=== PATIENT | male | born 1970 | race African-American/Black ===

== ENCOUNTER 2019-06-06 14:42 | Inpatient (IN) | payer OTHER ==
[2019-06-06 17:52] VITALS: BMI 22.8
--- NOTE | 2019-06-06 20:03 | PN ---
Teaching Attending Note Name of Resident: Charlene Hoskins ATTENDING PHYSICIAN STATEMENT I saw and evaluated the patient. I reviewed the resident's note and discussed the case with the resident. I agree with the resident's findings and plan as documented. SUBJECTIVE: 49 yo here for opioid detox and alcohol use. h/o HTN uses 1 bundle/day of heroin, sniffs drinks 2 oz/day. OBJECTIVE: Vital Signs - 24 hr 06/06/19 17:48 Temperature 100.3 F H Pulse Rate 79 Respiratory 16 Rate Blood Pressure 162/110 H repeat BP 99.6 PE- lungs clear macular red rash on R neck, extending to chest and back of neck-non pruritic, non tender ASSESSMENT AND PLAN: probable URI heroin detox follow rash
[2019-06-06] MEDS ORDERED: MAGNESIUM HYDROX 2400MG/30ML ORAL SUSPENSION 30 ML CUP PO PRN (20:07)
[2019-06-06] MEDS ORDERED: MAGNESIUM CITRATE 300 ML BOTTLE PO PRN (20:07)
[2019-06-06] MEDS ORDERED: MAG HYDROX/AL HYDROX/SIMETH 30 ML UNIT-DOSE CUP PO PRN (20:07)
[2019-06-06] MEDS ORDERED: guaiFENesin 200 MG/10 ML 10 ML UNIT-DOSE CUPS PO PRN (20:07)
[2019-06-06] MEDS ORDERED: LOPERAMIDE HCL 2 MG CAPSULE PO PRN (20:07)
[2019-06-06] MEDS ORDERED: MENTHOL/PHENOL 1 EACH UD MM PRN (20:07)
[2019-06-06] MEDS ORDERED: ACETAMINOPHEN 325 MG TABLET (FP) PO PRN (20:07)
[2019-06-06] MEDS ORDERED: cloNIDine HCL 0.1 MG TABLET PO PRN ×2 (20:12→20:17)
[2019-06-06] MEDS ORDERED: METHADONE HCL 10 MG TABLET (FOR DETOX USE ONLY) PO ONE (20:15)
--- NOTE | 2019-06-06 20:24 | HP ---
COWS - Scale Resting Pulse: 0= HI 80 or Below Sweatin= Chills/Flushing Restless Observation: 0= Sits Still Pupil Size: 0= Normal to Room Light Bone or Joint Aches: 1= Mild Discomfort Runny Nose/ Eye Tearin= Runny Nose/Eyes GI Upset > 30mins: 1= Stomach Cramp Tremor Observation: 0= None Yawning Observation: 1= 1-2x During Session Anxiety or Irritability: 1=Feels Anxious/Irritable Goose Flesh Skin: 3=Piloerection COWS Score: 10 CIWA Score - Admission Criteria [facility] Guidelines: Admission for Medically Managed Detox: Requires at least one of the followin. CIWA greater than 12 2. Seizures within the past 24 hours 3. Delirium tremens within the past 24 hours 4. Hallucinations within the past 24 hours 5. Acute intervention needed for co occurring medical disorder 6. Acute intervention needed for co occurring psychiatric disorder 7. Severe withdrawal that cannot be handled at a lower level of care (continued vomiting, continued diarrhea, abnormal vital signs) requiring intravenous medication and/or fluids 8. Admission [facility] Chief Complaint: detox from heroin Allergies/Adverse Reactions: Allergies Allergy/AdvReac Type Severity Reaction Status Date / Time No Known Allergies Allergy Verified 06/06/19 17:44 History of Present Illness: Mr. Hernandez is a 49yo male with heroin use disorder, cocaine use disorder, and HTN who presents for detox from heroin. He has been snorting usng 1 bundle/ daily x 6 months, following the of his mother. He has been using heroin since his 20s. He also snorts $100 of cocaine daily. He reports drinking 2 oz of vodka daily. He has been to detox multiple times and is requesting methadone for detox. He currently endorses fatigue, fever, chills, productive cough. He denies n/v/d. He is currently homeless and sometimes stays in shelters in [place]. He reports taking his amlodipine daily. PMH: heroin use disorder, cocaine use disorder, and HTN surgical hx: jaw fx family hx: father HTN meds: amlodipine NKDA - Ebola screening Have you traveled outside of the country in the last 21 days: No Have you had contact with anyone from an Ebola affected area: No - Review of Systems Constitutional: Chills, Diaphoresis, Fever, Weakness EENT: reports: Nose Congestion Respiratory: reports: Productive cough (whitish sputum). denies: Shortness of Breath, Wheezing Cardiac: denies: Chest Pain GI: denies: Diarrhea, Nausea, Vomiting Musculoskeletal: reports: Joint Pain Integumentary: reports: Rash Neuro: denies: Headache, Dizziness Endocrine: reports: No Symptoms Reported Hematology: reports: No Symptoms Reported Psychiatric: reports: Judgement Intact, Orientated x3, Agitated (mild) Patient History - Patient Medical History Hx Asthma: No Hx Hypertension: Yes Hx Diabetes: No - Patient Surgical History Past Surgical History: Yes Other Surgical History: jaw - Smoking Cessation Smoking history: Current every day smoker Have you smoked in the past 12 months: Yes Aproximately how many cigarettes per day: 20 Initiated information on smoking cessation: Yes 'Breaking Loose' booklet given: 06/06/19 - Substances abused Alcohol Substance route: Oral Frequency: Daily Amount used: 1 pint of vodka Age of first use: 15 Date of last use: 06/05/19 Heroin Substance route: Inhalation Frequency: Daily Amount used: 10 bags/day Age of first use: 20 Date of last use: 06/05/19 Cocaine Substance route: Inhalation Frequency: Daily Amount used: $100 Age of first use: 25 Date of last use: 06/05/19 Family Disease History - Family Disease History Family Disease History: Heart Disease: Father (HTN) Admission Physical Exam S - Vital Signs Vital Signs: Vital Signs - 24 hr 06/06/19 17:48 Temperature 100.3 F H Pulse Rate 79 Respiratory 16 Rate Blood Pressure 162/110 H - Physical General Appearance: Yes: Other (somnolent) HEENTM: Yes: Hearing grossly Normal, Normocephalic, ZEN, Other (dry mucous membranes) Respiratory: Yes: Lungs Clear, No Respiratory Distress Neck: Yes: Other (rash) Cardiology: Yes: Regular Rhythm, Regular Rate Abdominal: Yes: Normal Bowel Sounds, Non Tender Back: Yes: Normal Inspection Musculoskeletal: Yes: full range of Motion Extremities: Yes: Normal Capillary Refill Neurological: Yes: 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 NML intact, Fully Oriented, Alert, Motor Strength 5/5 Integumentary: Yes: Erythema (non-prurutic, non-tender macular rash along left chest, above clavicle, onto upper back and lateral neck) - Diagnostic (1) Severe heroin use disorder Current Visit: Yes Status: Chronic (2) Cocaine use disorder Current Visit: Yes Status: Chronic (3) Hypertension Current Visit: Yes Status: Chronic Qualifiers: Hypertension type: essential hypertension Qualified Code(s): I10 - Essential (primary) hypertension Cleared for Admission B[facility] - Detox or Rehab [facility] Level of Care: Medically Managed Breathalyzer - Breathalyzer Breathalyzer: 0 Inpatient Rehab Admission - Rehab Decision to Admit Inpatient rehab admission?: No
--- NOTE | 2019-06-06 22:26 | PN ---
S Progress Note Note: Hx HTN. Heroin and Cocaine use disorder. Denies CP/SOB. Abnormal EKG noted on routine exam. Vital Signs 06/06/19 06/06/19 06/06/19 17:48 21:29 21:53 Temperature 100.3 F H 98.9 F 98.9 F Pulse Rate 79 72 72 Respiratory 16 16 16 Rate Blood Pressure 162/110 H 179/110 H 179/110 H Plan: Repeat EKG in a.m. Clonidine 0.1 mg for DBP > 100
[2019-06-06] MEDS: THIAMINE HCL 100 MG TABLET (FP) PO SCH (22:51)
[2019-06-06] MEDS: NICOTINE 21 MG/24 HOURS TOPICAL PATCH TD SCH (22:52)
[2019-06-07] MEDS ORDERED: METHADONE HCL 10 MG TABLET (FOR DETOX USE ONLY) ONE (08:44)
[2019-06-07] MEDS ORDERED: METHADONE HCL 5 MG TABLET (FOR DETOX USE ONLY) ONE (08:45)
[2019-06-07] MEDS ORDERED: METHADONE (DETOX) 20 MG, METHADONE (DETOX) 5 MG PO ONE (10:00)
[2019-06-07 10:07] LABS: ALBUMIN 3.5 g/dl (3.4-5.0); BILIRUBIN,TOTAL 0.5 mg/dL (0.2-1); BLOOD UREA NITROGEN 15.1 mg/dL (7-18); CALCIUM 9.1 mg/dL (8.5-10.1); CREATININE 1.1 mg/dL (0.55-1.3)
[2019-06-07] MEDS: ASPIRIN 81 MG CHEWABLE TABLETS PO SCH (10:09)
[2019-06-07] MEDS: PRENATAL VITAMINS W/ FOLIC ACID TABLET (FP) PO SCH (10:10)
[2019-06-07] MEDS: amLODIPine BESYLATE 10 MG TABLET (FP) PO SCH (10:10)
[2019-06-07] MEDS: NICOTINE 21 MG/24 HOURS TOPICAL PATCH TD SCH (10:10)
--- NOTE | 2019-06-07 11:28 | EKG ---
Test Reason : Blood Pressure : / mmHG Vent. Rate : 063 BPM Atrial Rate : 063 BPM P-R Int : 146 ms QRS Dur : 096 ms QT Int : 450 ms P-R-T Axes : 038 -38 043 degrees QTc Int : 460 ms NORMAL SINUS RHYTHM LEFT AXIS DEVIATION INCOMPLETE RIGHT BUNDLE BRANCH BLOCK MINIMAL VOLTAGE CRITERIA FOR LVH, MAY BE NORMAL VARIANT SEPTAL INFARCT , AGE UNDETERMINED ABNORMAL ECG NO PREVIOUS ECGS AVAILABLE Confirmed by Yossi Hamm MD ([id number]) on 06/07/2019 11:28:41 AM Referred By: Confirmed By:Yossi Hamm MD
--- NOTE | 2019-06-07 11:57 | PN ---
BHS COWS - Scale Resting Pulse: 0= [place] 80 or Below Sweatin= Chills/Flushing Restless Observation: 0= Sits Still Pupil Size: 0= Normal to Room Light Bone or Joint Aches: 1= Mild Discomfort Runny Nose/ Eye Tearin= None GI Upset > 30mins: 1= Stomach Cramp Tremor Observation of Outstretched Hands: 1= Tremor [place], Not Seen Yawning Observation: 1= 1-2x During Session Anxiety or Irritability: 1=Feels Anxious/Irritable Goose Flesh Skin: 0=Smooth Skin COWS Score: 6 BHS Progress Note (SOAP) Subjective: 49 years old male admitted on 06/06/19 for acute opiate withdrawal sx management doing well with methadone detox regimen patient is taking suboxone 8-2 mg po bid receiving prescription every two weeks last filled on 05/23/19 negative urine suboxone upon admission long history of hypertension none compliance with medication begin amlodipin 10mg po daily clonidin 0.1 mg po q6h prn for hypertension Objective: 06/07/19 12:05 Vital Signs Temperature 97.1 F L 06/07/19 09:20 Pulse Rate 59 L 06/07/19 09:20 Respiratory Rate 18 06/07/19 09:20 Blood Pressure 149/82 06/07/19 09:20 O2 Sat by Pulse Oximetry (%) Laboratory Last Values Sodium 140 mmol/L (136-145) 06/07/19 08:05 Potassium 4.0 mmol/L (3.5-5.1) 06/07/19 08:05 Chloride 102 mmol/L (98-107) 06/07/19 08:05 Carbon Dioxide 32 mmol/L (21-32) 06/07/19 08:05 Anion Gap 5 MMOL/L (8-16) L 06/07/19 08:05 BUN 15.1 mg/dL (7-18) 06/07/19 08:05 Creatinine 1.1 mg/dL (0.55-1.3) 06/07/19 08:05 Est GFR (CKD-EPI)AfAm 90.88 06/07/19 08:05 Est GFR (CKD-EPI)NonAf 78.41 06/07/19 08:05 Random Glucose 79 mg/dL (74-106) 06/07/19 08:05 Calcium 9.1 mg/dL (8.5-10.1) 06/07/19 08:05 Total Bilirubin 0.5 mg/dL (0.2-1) 06/07/19 08:05 AST 10 U/L (15-37) L 06/07/19 08:05 ALT 13 U/L (13-61) 06/07/19 08:05 Alkaline Phosphatase 55 U/L (45-117) 06/07/19 08:05 Total Protein 7.0 g/dl (6.4-8.2) 06/07/19 08:05 Albumin 3.5 g/dl (3.4-5.0) 06/07/19 08:05 lab noted Assessment: 06/07/19 12:05 opiate withdrawal sx Plan: continue methadone detox regimen
[2019-06-07] MEDS ORDERED: cloNIDine HCL 0.1 MG TABLET PO PRN (12:04)
[2019-06-07 13:43] LABS: HEMOGLOBIN 14.4 GM/dL (11.7-16.9); MCH 30.9 pg (25.7-33.7); MCHC 33.4 g/dl (32.0-35.9); MEAN CELL VOLUME 92.4 fl (80-96); MEAN PLT VOLUME 8.1 fl (7.5-11.1); PLATELET COUNT 312 K/MM3 (134-434); RBC 4.65 M/mm3 (4.00-5.60); RDW 13.6 % (11.9-15.9); WHITE BLOOD COUNT 8.7 K/mm3 (4.0-10.0)
[2019-06-07] MEDS: MELATONIN 5 MG TABLETS PO PRN (22:12)
[2019-06-07] MEDS: hydrOXYzine PAMOATE 25 MG CAPSULE (FP) PO PRN (22:12)
[2019-06-07] MEDS: THIAMINE HCL 100 MG TABLET (FP) PO SCH (22:12)
[2019-06-08] MEDS ORDERED: METHADONE HCL 10 MG TABLET (FOR DETOX USE ONLY) PO ONE (10:00)
--- NOTE | 2019-06-08 10:00 | PN ---
BHS COWS - Scale Resting Pulse: 0= [place] 80 or Below Sweatin= Chills/Flushing Restless Observation: 0= Sits Still Pupil Size: 0= Normal to Room Light Bone or Joint Aches: 1= Mild Discomfort Runny Nose/ Eye Tearin= None GI Upset > 30mins: 0= None Tremor Observation of Outstretched Hands: 1= Tremor [place], Not Seen Yawning Observation: 0= None Anxiety or Irritability: 0= None Goose Flesh Skin: 0=Smooth Skin COWS Score: 3 BHS Progress Note (SOAP) Subjective: ekg performed on 06/08/19 around 6 am S1S2 history of AR denies dizziness no shortness of breathe no chest pain encourage the patient considering medication assisted treatment program Objective: 06/08/19 10:01 Vital Signs Temperature 99.2 F 06/08/19 09:04 Pulse Rate 69 06/08/19 09:04 Respiratory Rate 18 06/08/19 09:04 Blood Pressure 135/73 06/08/19 09:04 O2 Sat by Pulse Oximetry (%) Laboratory Last Values WBC 8.7 K/mm3 (4.0-10.0) 06/07/19 08:05 RBC 4.65 M/mm3 (4.00-5.60) 06/07/19 08:05 Hgb 14.4 GM/dL (11.7-16.9) 06/07/19 08:05 Hct 43.0 % (35.4-49) 06/07/19 08:05 MCV 92.4 fl (80-96) 06/07/19 08:05 MCH 30.9 pg (25.7-33.7) 06/07/19 08:05 MCHC 33.4 g/dl (32.0-35.9) 06/07/19 08:05 RDW 13.6 % (11.9-15.9) 06/07/19 08:05 Plt Count 312 K/MM3 (134-434) 06/07/19 08:05 MPV 8.1 fl (7.5-11.1) 06/07/19 08:05 Sodium 140 mmol/L (136-145) 06/07/19 08:05 Potassium 4.0 mmol/L (3.5-5.1) 06/07/19 08:05 Chloride 102 mmol/L (98-107) 06/07/19 08:05 Carbon Dioxide 32 mmol/L (21-32) 06/07/19 08:05 Anion Gap 5 MMOL/L (8-16) L 06/07/19 08:05 BUN 15.1 mg/dL (7-18) 06/07/19 08:05 Creatinine 1.1 mg/dL (0.55-1.3) 06/07/19 08:05 Est GFR (CKD-EPI)AfAm 90.88 06/07/19 08:05 Est GFR (CKD-EPI)NonAf 78.41 06/07/19 08:05 Random Glucose 79 mg/dL (74-106) 06/07/19 08:05 Calcium 9.1 mg/dL (8.5-10.1) 06/07/19 08:05 Total Bilirubin 0.5 mg/dL (0.2-1) 06/07/19 08:05 AST 10 U/L (15-37) L 06/07/19 08:05 ALT 13 U/L (13-61) 06/07/19 08:05 Alkaline Phosphatase 55 U/L (45-117) 06/07/19 08:05 Total Protein 7.0 g/dl (6.4-8.2) 06/07/19 08:05 Albumin 3.5 g/dl (3.4-5.0) 06/07/19 08:05 RPR Titer Nonreactive (NONREACTIVE) 06/07/19 08:05 lab noted Assessment: 06/08/19 10:02 opiate withdrawal sx alert oriented x 3 S1S2 clear lung bilaterally abdomen soft non tender Plan: continue methadone detox regimen
[2019-06-08] MEDS: PRENATAL VITAMINS W/ FOLIC ACID TABLET (FP) PO SCH (10:12)
[2019-06-08] MEDS: hydrOXYzine PAMOATE 25 MG CAPSULE (FP) PO PRN (10:12)
[2019-06-08] MEDS: ASPIRIN 81 MG CHEWABLE TABLETS PO SCH (10:12)
[2019-06-08] MEDS: NICOTINE 21 MG/24 HOURS TOPICAL PATCH TD SCH (10:12)
[2019-06-08] MEDS: amLODIPine BESYLATE 10 MG TABLET (FP) PO SCH (10:12)
--- NOTE | 2019-06-08 11:48 | EKG ---
Test Reason : Blood Pressure : / mmHG Vent. Rate : 060 BPM Atrial Rate : 060 BPM P-R Int : 148 ms QRS Dur : 096 ms QT Int : 436 ms P-R-T Axes : 049 -11 042 degrees QTc Int : 436 ms NORMAL SINUS RHYTHM NONSPECIFIC T WAVE ABNORMALITY ABNORMAL ECG WHEN COMPARED WITH ECG OF 06-JUN-2019 20:53, INCOMPLETE RIGHT BUNDLE BRANCH BLOCK IS NO LONGER PRESENT CRITERIA FOR SEPTAL INFARCT ARE NO LONGER PRESENT Confirmed by ZEENAT NOYOLA, HARPAL ([id number]) on 06/08/2019 11:48:30 AM Referred By: Confirmed By:HARPAL EPPERSON MD
[2019-06-08] MEDS: CLINDAMYCIN PHOSPHATE 1% TOPICAL SOLUTION 30 ML BOTTLE TP SCH ×2 (15:55→22:22)
[2019-06-08] MEDS: PENICILLIN V POTASSIUM 500 MG TABLET PO SCH ×2 (15:55→22:22)
[2019-06-08 16:50] LABS: PH,URINE 7.5 (5.0-8.0); URINE APPEARANCE CLEAR; URINE BILIRUBIN NEGATIVE (NEGATIVE); URINE COLOR YELLOW; URINE GLUCOSE (UA) TRACE (NEGATIVE); URINE KETONE NEGATIVE (NEGATIVE); URINE LEUK ESTERASE NEGATIVE (NEGATIVE); URINE NITRITE NEGATIVE (NEGATIVE); URINE PROTEIN NEGATIVE (NEGATIVE); URINE UROBILINOGEN 0.2 mg/dL (0.2-1.0)
[2019-06-08] MEDS: MELATONIN 5 MG TABLETS PO PRN (22:22)
[2019-06-08] MEDS: THIAMINE HCL 100 MG TABLET (FP) PO SCH (22:22)
[2019-06-08] MEDS: IBUPROFEN 400 MG TABLET (FP) PO PRN (22:24)
[2019-06-09] MEDS ORDERED: METHADONE HCL 10 MG TABLET (FOR DETOX USE ONLY) ONE (08:59)
[2019-06-09] MEDS ORDERED: METHADONE HCL 5 MG TABLET (FOR DETOX USE ONLY) ONE (08:59)
[2019-06-09] MEDS ORDERED: METHADONE (DETOX) 10 MG, METHADONE (DETOX) 5 MG PO ONE (10:00)
[2019-06-09] MEDS: amLODIPine BESYLATE 10 MG TABLET (FP) PO SCH (10:05)
[2019-06-09] MEDS: CLINDAMYCIN PHOSPHATE 1% TOPICAL SOLUTION 30 ML BOTTLE TP SCH ×2 (10:05→22:21)
[2019-06-09] MEDS: PRENATAL VITAMINS W/ FOLIC ACID TABLET (FP) PO SCH (10:05)
[2019-06-09] MEDS: PENICILLIN V POTASSIUM 500 MG TABLET PO SCH ×2 (10:05→22:21)
[2019-06-09] MEDS: NICOTINE 21 MG/24 HOURS TOPICAL PATCH TD SCH (10:05)
[2019-06-09] MEDS: ASPIRIN 81 MG CHEWABLE TABLETS PO SCH (10:05)
--- NOTE | 2019-06-09 16:04 | PN ---
BHS COWS - Scale Resting Pulse: 0= [place] 80 or Below Sweatin= Chills/Flushing Restless Observation: 0= Sits Still Pupil Size: 0= Normal to Room Light Bone or Joint Aches: 1= Mild Discomfort Runny Nose/ Eye Tearin= None GI Upset > 30mins: 0= None Tremor Observation of Outstretched Hands: 1= Tremor [place], Not Seen Yawning Observation: 0= None Anxiety or Irritability: 1=Feels Anxious/Irritable Goose Flesh Skin: 0=Smooth Skin COWS Score: 4 BHS Progress Note (SOAP) Subjective: axillary papular appear smaller and softer continue warm compress with topical antibiotic Objective: 06/09/19 16:07 Vital Signs Temperature 98.0 F 06/09/19 13:44 Pulse Rate 74 06/09/19 13:44 Respiratory Rate 18 06/09/19 13:44 Blood Pressure 143/84 06/09/19 13:44 O2 Sat by Pulse Oximetry (%) Laboratory Last Values WBC 8.7 K/mm3 (4.0-10.0) 06/07/19 08:05 RBC 4.65 M/mm3 (4.00-5.60) 06/07/19 08:05 Hgb 14.4 GM/dL (11.7-16.9) 06/07/19 08:05 Hct 43.0 % (35.4-49) 06/07/19 08:05 MCV 92.4 fl (80-96) 06/07/19 08:05 MCH 30.9 pg (25.7-33.7) 06/07/19 08:05 MCHC 33.4 g/dl (32.0-35.9) 06/07/19 08:05 RDW 13.6 % (11.9-15.9) 06/07/19 08:05 Plt Count 312 K/MM3 (134-434) 06/07/19 08:05 MPV 8.1 fl (7.5-11.1) 06/07/19 08:05 Sodium 140 mmol/L (136-145) 06/07/19 08:05 Potassium 4.0 mmol/L (3.5-5.1) 06/07/19 08:05 Chloride 102 mmol/L (98-107) 06/07/19 08:05 Carbon Dioxide 32 mmol/L (21-32) 06/07/19 08:05 Anion Gap 5 MMOL/L (8-16) L 06/07/19 08:05 BUN 15.1 mg/dL (7-18) 06/07/19 08:05 Creatinine 1.1 mg/dL (0.55-1.3) 06/07/19 08:05 Est GFR (CKD-EPI)AfAm 90.88 06/07/19 08:05 Est GFR (CKD-EPI)NonAf 78.41 06/07/19 08:05 Random Glucose 79 mg/dL (74-106) 06/07/19 08:05 Calcium 9.1 mg/dL (8.5-10.1) 06/07/19 08:05 Total Bilirubin 0.5 mg/dL (0.2-1) 06/07/19 08:05 AST 10 U/L (15-37) L 06/07/19 08:05 ALT 13 U/L (13-61) 06/07/19 08:05 Alkaline Phosphatase 55 U/L (45-117) 06/07/19 08:05 Total Protein 7.0 g/dl (6.4-8.2) 06/07/19 08:05 Albumin 3.5 g/dl (3.4-5.0) 06/07/19 08:05 Urine Color Yellow 06/08/19 16:07 Urine Appearance Clear 06/08/19 16:07 Urine pH 7.5 (5.0-8.0) 06/08/19 16:07 Ur Specific [place] 1.008 (1.010-1.035) L 06/08/19 16:07 Urine Protein Negative (NEGATIVE) 06/08/19 16:07 Urine Glucose (UA) Trace (NEGATIVE) 06/08/19 16:07 Urine Ketones Negative (NEGATIVE) 06/08/19 16:07 Urine Blood Negative (NEGATIVE) 06/08/19 16:07 Urine Nitrite Negative (NEGATIVE) 06/08/19 16:07 Urine Bilirubin Negative (NEGATIVE) 06/08/19 16:07 Urine Urobilinogen 0.2 mg/dL (0.2-1.0) 06/08/19 16:07 Ur Leukocyte Esterase Negative (NEGATIVE) 06/08/19 16:07 RPR Titer Nonreactive (NONREACTIVE) 06/07/19 08:05 lab noted Assessment: 06/09/19 16:08 opiate withdrawal sx alert oriented x 3 06/09/19 16:10 abdomen soft none tender Plan: continue methadone detox regimen
[2019-06-09] MEDS: MELATONIN 5 MG TABLETS PO PRN (22:21)
[2019-06-09] MEDS: THIAMINE HCL 100 MG TABLET (FP) PO SCH (22:21)
[2019-06-09] MEDS: IBUPROFEN 400 MG TABLET (FP) PO PRN (22:22)
[2019-06-10] MEDS ORDERED: METHADONE HCL 10 MG TABLET (FOR DETOX USE ONLY) PO ONE (10:00)
[2019-06-10] MEDS: ASPIRIN 81 MG CHEWABLE TABLETS PO SCH (10:41)
[2019-06-10] MEDS: CLINDAMYCIN PHOSPHATE 1% TOPICAL SOLUTION 30 ML BOTTLE TP SCH ×2 (10:41→22:18)
[2019-06-10] MEDS: PRENATAL VITAMINS W/ FOLIC ACID TABLET (FP) PO SCH (10:42)
[2019-06-10] MEDS: amLODIPine BESYLATE 10 MG TABLET (FP) PO SCH (10:42)
[2019-06-10] MEDS: NICOTINE 21 MG/24 HOURS TOPICAL PATCH TD SCH (10:42)
[2019-06-10] MEDS: PENICILLIN V POTASSIUM 500 MG TABLET PO SCH ×2 (10:42→22:18)
--- NOTE | 2019-06-10 15:28 | PN ---
BHS COWS - Scale Resting Pulse: 0= HI 80 or Below Sweatin= No chills or Flushing Restless Observation: 1= Difficult to Sit Still Pupil Size: 0= Normal to Room Light Bone or Joint Aches: 0= None Runny Nose/ Eye Tearin= None GI Upset > 30mins: 0= None Tremor Observation of Outstretched Hands: 0= None Yawning Observation: 1= 1-2x During Session Anxiety or Irritability: 2=Irritable/Anxious Goose Flesh Skin: 0=Smooth Skin COWS Score: 4 BHS Progress Note (SOAP) Subjective: Anxious. Objective: PATIENT A & O X 3, OBSERVED AMBULATING ON UNIT UNASSISTED. IN NO ACUTE DISTRESS. 06/10/19 15:27 Vital Signs Temperature 98.8 F 06/10/19 13:23 Pulse Rate 74 06/10/19 13:23 Respiratory Rate 18 06/10/19 13:23 Blood Pressure 150/86 06/10/19 13:23 O2 Sat by Pulse Oximetry (%) Laboratory Tests 06/07/19 06/07/19 06/07/19 08:05 08:05 08:05 WBC 8.7 RBC 4.65 Hgb 14.4 Hct 43.0 MCV 92.4 MCH 30.9 MCHC 33.4 RDW 13.6 Plt Count 312 MPV 8.1 Sodium 140 Potassium 4.0 Chloride 102 Carbon Dioxide 32 Anion Gap 5 L BUN 15.1 Creatinine 1.1 Est GFR (CKD-EPI)AfAm 90.88 Est GFR (CKD-EPI)NonAf 78.41 Random Glucose 79 Calcium 9.1 Total Bilirubin 0.5 AST 10 L ALT 13 Alkaline Phosphatase 55 Total Protein 7.0 Albumin 3.5 Urine Color Urine Appearance Urine pH Ur Specific [place] Urine Protein Urine Glucose (UA) Urine Ketones Urine Blood Urine Nitrite Urine Bilirubin Urine Urobilinogen Ur Leukocyte Esterase RPR Titer Nonreactive TB (QFT) Incubation TB Test (QFT) Nil TB Test (QFT) Mitogen TB Test (QFT) Antigen TB Test (QFT) TB Positive Criteria 06/07/19 06/08/19 08:05 16:07 WBC RBC Hgb Hct MCV MCH MCHC RDW Plt Count MPV Sodium Potassium Chloride Carbon Dioxide Anion Gap BUN Creatinine Est GFR (CKD-EPI)AfAm Est GFR (CKD-EPI)NonAf Random Glucose Calcium Total Bilirubin AST ALT Alkaline Phosphatase Total Protein Albumin Urine Color Yellow Urine Appearance Clear Urine pH 7.5 Ur Specific [place] 1.008 L Urine Protein Negative Urine Glucose (UA) Trace Urine Ketones Negative Urine Blood Negative Urine Nitrite Negative Urine Bilirubin Negative Urine Urobilinogen 0.2 Ur Leukocyte Esterase Negative RPR Titer TB (QFT) Incubation TB Test (QFT) Nil 0.09 TB Test (QFT) Mitogen >10.00 TB Test (QFT) Antigen 0.09 TB Test (QFT) Negative TB Positive Criteria LABS NOTED. Assessment: 06/10/19 15:28 WITHDRAWAL SYMPTOMS. Plan: CONTINUE DETOX. PATIENT SCHEDULED FOR DISCHARGE FROM DETOX UNIT TOMORROW.
[2019-06-10] MEDS: THIAMINE HCL 100 MG TABLET (FP) PO SCH (22:18)
[2019-06-10] MEDS: MELATONIN 5 MG TABLETS PO PRN (22:19)
[2019-06-11] MEDS ORDERED: METHADONE HCL 5 MG TABLET (FOR DETOX USE ONLY) PO ONE (06:00)
[2019-06-11 06:24] VITALS: BP 131/80; PULSE 64; TEMP 97.6
[2019-06-11] MEDS: CLINDAMYCIN PHOSPHATE 1% TOPICAL SOLUTION 30 ML BOTTLE TP SCH (10:39)
[2019-06-11] MEDS: PRENATAL VITAMINS W/ FOLIC ACID TABLET (FP) PO SCH (10:39)
[2019-06-11] MEDS: ASPIRIN 81 MG CHEWABLE TABLETS PO SCH (10:39)
[2019-06-11] MEDS: amLODIPine BESYLATE 10 MG TABLET (FP) PO SCH (10:39)
[2019-06-11] MEDS: NICOTINE 21 MG/24 HOURS TOPICAL PATCH TD SCH (10:39)
[2019-06-11] MEDS: IBUPROFEN 400 MG TABLET (FP) PO PRN (10:41)
--- NOTE | 2019-06-11 13:01 | DS ---
[facility] Detox Discharge Summary Admission Date: 06/06/19 Discharge Date: 06/11/19 - History Present History: Cocaine Dependence, Opioid Dependence Additional Comments: PATIENT GOING TO [facility] ([place] FOR AFTERCARE. PATIENT WAS DISCHARGED FROM DETOX UNIT TO BE TAKEN OVER TO REHAB UNIT IN STABLE MEDICAL CONDITION. Pertinent Past History: HTN. - Physical Exam Results Vital Signs: Vital Signs Temperature 97.6 F 06/11/19 06:24 Pulse Rate 64 06/11/19 06:24 Respiratory Rate 18 06/11/19 06:24 Blood Pressure 131/80 06/11/19 06:24 O2 Sat by Pulse Oximetry (%) Pertinent Admission Physical Exam Findings: WITHDRAWAL SYMPTOMS. Laboratory Tests 06/07/19 06/07/19 06/07/19 08:05 08:05 08:05 WBC 8.7 RBC 4.65 Hgb 14.4 Hct 43.0 MCV 92.4 MCH 30.9 MCHC 33.4 RDW 13.6 Plt Count 312 MPV 8.1 Sodium 140 Potassium 4.0 Chloride 102 Carbon Dioxide 32 Anion Gap 5 L BUN 15.1 Creatinine 1.1 Est GFR (CKD-EPI)AfAm 90.88 Est GFR (CKD-EPI)NonAf 78.41 Random Glucose 79 Calcium 9.1 Total Bilirubin 0.5 AST 10 L ALT 13 Alkaline Phosphatase 55 Total Protein 7.0 Albumin 3.5 Urine Color Urine Appearance Urine pH Ur Specific [place] Urine Protein Urine Glucose (UA) Urine Ketones Urine Blood Urine Nitrite Urine Bilirubin Urine Urobilinogen Ur Leukocyte Esterase RPR Titer Nonreactive TB (QFT) Incubation TB Test (QFT) Nil TB Test (QFT) Mitogen TB Test (QFT) Antigen TB Test (QFT) TB Positive Criteria 06/07/19 06/08/19 08:05 16:07 WBC RBC Hgb Hct MCV MCH MCHC RDW Plt Count MPV Sodium Potassium Chloride Carbon Dioxide Anion Gap BUN Creatinine Est GFR (CKD-EPI)AfAm Est GFR (CKD-EPI)NonAf Random Glucose Calcium Total Bilirubin AST ALT Alkaline Phosphatase Total Protein Albumin Urine Color Yellow Urine Appearance Clear Urine pH 7.5 Ur Specific [place] 1.008 L Urine Protein Negative Urine Glucose (UA) Trace Urine Ketones Negative Urine Blood Negative Urine Nitrite Negative Urine Bilirubin Negative Urine Urobilinogen 0.2 Ur Leukocyte Esterase Negative RPR Titer TB (QFT) Incubation TB Test (QFT) Nil 0.09 TB Test (QFT) Mitogen >10.00 TB Test (QFT) Antigen 0.09 TB Test (QFT) Negative TB Positive Criteria LABS NOTED. - Treatment Hospital Course: Detox Protocol Followed, Detoxed Safely, Responded well, Discharged Condition Good, Rehab Referral Accepted Patient has Accepted a Rehab Referral to: [facility] ([place], [place]). - Medication Discharge Medications: Ambulatory Orders Amlodipine Besylate [Norvasc -] 10 mg PO DAILY 30 Days #30 tablet 06/11/19 Aspirin 81 mg PO DAILY 30 Days #30 tab.chew 06/11/19 - Diagnosis (1) Cocaine use disorder Status: Chronic (2) Hypertension Status: Chronic Qualifiers: Hypertension type: essential hypertension Qualified Code(s): I10 - Essential (primary) hypertension (3) Severe heroin use disorder Status: Acute - AMA Did Patient Leave Against Medical Advice: No BHS COWS - Scale Resting Pulse: 0= [place] 80 or Below Sweatin= No chills or Flushing Restless Observation: 1= Difficult to Sit Still Pupil Size: 0= Normal to Room Light Bone or Joint Aches: 0= None Runny Nose/ Eye Tearin= None GI Upset > 30mins: 0= None Tremor Observation of Outstretched Hands: 0= None Yawning Observation: 1= 1-2x During Session Anxiety or Irritability: 0= None Goose Flesh Skin: 0=Smooth Skin COWS Score: 2
== END 2019-06-11 12:13 | disposition other institution (70) | DRG 773 ==
LOC: YASAS 14:42 → Y3N 20:45
PROVIDERS: ADMIT Surgery; ATTEND Surgery
PROC: HZ2ZZZZ Detoxification Services for Substance Abuse Treatment (ICD-10-PCS; principal; 2019-06-06)
DX: F11.23 Opioid dependence with withdrawal (principal); F14.20 Cocaine dependence, uncomplicated; I10 Essential (primary) hypertension; Z91.14 Patient's other noncompliance with medication regimen
CPT/HCPCS: 36415; 80053; 81003; 85027; 86480; 86593; 93005; 93010; J0735

== ENCOUNTER 2019-06-11 12:14 | Inpatient (IN) | payer OTHER ==
[2019-06-11] MEDS ORDERED: guaiFENesin 200 MG/10 ML 10 ML UNIT-DOSE CUPS PO PRN (13:03)
[2019-06-11] MEDS ORDERED: LOPERAMIDE HCL 2 MG CAPSULE PO PRN (13:03)
[2019-06-11] MEDS ORDERED: MENTHOL/PHENOL 1 EACH UD MM PRN (13:03)
[2019-06-11] MEDS ORDERED: MAGNESIUM CITRATE 300 ML BOTTLE PO PRN (13:03)
[2019-06-11] MEDS ORDERED: P-EPHED 60MG/TRIPROLIDI 2.5MG TABLET PO PRN (13:03)
[2019-06-11] MEDS ORDERED: MAGNESIUM HYDROX 2400MG/30ML ORAL SUSPENSION 30 ML CUP PO PRN (13:03)
--- NOTE | 2019-06-11 13:07 | HP ---
[facility] Rehab Assess/Revision - Admission History Admitted to Rehab from: [facility] Date of Admission to Rehab: 06/11/2019 - Vital signs Vital Signs: NOTED; STABLE. - Findings Detox History & Physical reviewed: Yes Concur with findings: Yes Comments/Additional Findings: PATIENT'S MEDICAL / MEDICATION HISTORY REVIEWED PRIOR TO DISCHARGE FROM DETOX UNIT. PATIENT WAS DISCHARGED FROM DETOX UNIT TO BE TAKEN OVER TO REHAB UNIT IN STABLE MEDICAL CONDITION. Inpatient Rehab Admission - Rehab Decision to Admit Inpatient rehab admission?: Yes - Initial Determination Are CD services needed?: Yes Free of communicable disease: Yes Not in need of hospitalization: Yes - Rehab Admission Criteria Previous failed treatment: Yes Poor recovery environment: Yes Comorbidities: Yes Lacks judgement: No Patient is meeting Inpatient Rehab admission criteria:: Yes
[2019-06-11] MEDS: CLINDAMYCIN PHOSPHATE 1% TOPICAL SOLUTION 30 ML BOTTLE TP SCH (23:08)
[2019-06-11] MEDS: MELATONIN 5 MG TABLETS PO PRN (23:09)
[2019-06-11] MEDS: THIAMINE HCL 100 MG TABLET (FP) PO SCH (23:15)
[2019-06-12] MEDS: ASPIRIN 81 MG CHEWABLE TABLETS PO SCH (10:34)
[2019-06-12] MEDS: amLODIPine BESYLATE 10 MG TABLET (FP) PO SCH (10:35)
[2019-06-12] MEDS: PRENATAL VITAMINS W/ FOLIC ACID TABLET (FP) PO SCH (10:36)
[2019-06-12] MEDS: NICOTINE 21 MG/24 HOURS TOPICAL PATCH TD SCH (10:36)
[2019-06-12] MEDS: CLINDAMYCIN PHOSPHATE 1% TOPICAL SOLUTION 30 ML BOTTLE TP SCH ×2 (10:36→21:57)
[2019-06-12] MEDS: ACETAMINOPHEN 325 MG TABLET (FP) PO PRN (10:38)
[2019-06-12] MEDS: THIAMINE HCL 100 MG TABLET (FP) PO SCH (21:56)
[2019-06-12] MEDS: MELATONIN 5 MG TABLETS PO PRN (21:56)
[2019-06-13] MEDS: NICOTINE 21 MG/24 HOURS TOPICAL PATCH TD SCH (09:59)
[2019-06-13] MEDS: amLODIPine BESYLATE 10 MG TABLET (FP) PO SCH (09:59)
[2019-06-13] MEDS: PRENATAL VITAMINS W/ FOLIC ACID TABLET (FP) PO SCH (09:59)
[2019-06-13] MEDS: ASPIRIN 81 MG CHEWABLE TABLETS PO SCH (09:59)
[2019-06-13] MEDS: CLINDAMYCIN PHOSPHATE 1% TOPICAL SOLUTION 30 ML BOTTLE TP SCH ×2 (09:59→21:31)
[2019-06-13] MEDS: ACETAMINOPHEN 325 MG TABLET (FP) PO PRN (10:06)
[2019-06-13] MEDS ORDERED: hydrOXYzine PAMOATE 50 MG CAPSULE (FP) PO PRN (14:13)
[2019-06-13] MEDS: METHOCARBAMOL 500 MG TABLET PO SCH (21:30)
[2019-06-13] MEDS: THIAMINE HCL 100 MG TABLET (FP) PO SCH (21:31)
[2019-06-13] MEDS: MELATONIN 5 MG TABLETS PO PRN (21:31)
[2019-06-14] MEDS: METHOCARBAMOL 500 MG TABLET PO SCH ×3 (06:33→21:22)
[2019-06-14] MEDS: PRENATAL VITAMINS W/ FOLIC ACID TABLET (FP) PO SCH (10:25)
[2019-06-14] MEDS: amLODIPine BESYLATE 10 MG TABLET (FP) PO SCH (10:25)
[2019-06-14] MEDS: ASPIRIN 81 MG CHEWABLE TABLETS PO SCH (10:25)
[2019-06-14] MEDS: NICOTINE 21 MG/24 HOURS TOPICAL PATCH TD SCH (10:25)
[2019-06-14] MEDS: CLINDAMYCIN PHOSPHATE 1% TOPICAL SOLUTION 30 ML BOTTLE TP SCH ×2 (10:26→21:22)
[2019-06-14] MEDS: MELATONIN 5 MG TABLETS PO PRN (21:22)
[2019-06-14] MEDS: THIAMINE HCL 100 MG TABLET (FP) PO SCH (21:22)
[2019-06-15] MEDS: METHOCARBAMOL 500 MG TABLET PO SCH ×3 (06:24→21:22)
[2019-06-15] MEDS: amLODIPine BESYLATE 10 MG TABLET (FP) PO SCH (10:07)
[2019-06-15] MEDS: ASPIRIN 81 MG CHEWABLE TABLETS PO SCH (10:07)
[2019-06-15] MEDS: PRENATAL VITAMINS W/ FOLIC ACID TABLET (FP) PO SCH (10:07)
[2019-06-15] MEDS: NICOTINE 21 MG/24 HOURS TOPICAL PATCH TD SCH (10:08)
[2019-06-15] MEDS: CLINDAMYCIN PHOSPHATE 1% TOPICAL SOLUTION 30 ML BOTTLE TP SCH ×2 (10:08→21:23)
[2019-06-15] MEDS: ACETAMINOPHEN 325 MG TABLET (FP) PO PRN (11:12)
[2019-06-15] MEDS: THIAMINE HCL 100 MG TABLET (FP) PO SCH (21:22)
[2019-06-15] MEDS: MELATONIN 5 MG TABLETS PO PRN (21:23)
[2019-06-16] MEDS: ACETAMINOPHEN 325 MG TABLET (FP) PO PRN (06:51)
[2019-06-16] MEDS: METHOCARBAMOL 500 MG TABLET PO SCH ×3 (06:51→21:19)
--- NOTE | 2019-06-16 08:48 | PN ---
S Progress Note Note: Vital Signs Temperature 97.5 F L 06/16/19 06:51 Pulse Rate 83 06/16/19 06:51 Respiratory Rate 18 06/16/19 06:51 Blood Pressure 131/96 06/16/19 06:51 O2 Sat by Pulse Oximetry (%) c/o of dental pain no distress ibuprofen prn anbesol prn continue to monitor follow up with dental post discharge
[2019-06-16] MEDS: NICOTINE 21 MG/24 HOURS TOPICAL PATCH TD SCH (10:15)
[2019-06-16] MEDS: CLINDAMYCIN PHOSPHATE 1% TOPICAL SOLUTION 30 ML BOTTLE TP SCH ×2 (10:16→21:19)
[2019-06-16] MEDS: amLODIPine BESYLATE 10 MG TABLET (FP) PO SCH (10:16)
[2019-06-16] MEDS: ASPIRIN 81 MG CHEWABLE TABLETS PO SCH (10:16)
[2019-06-16] MEDS: PRENATAL VITAMINS W/ FOLIC ACID TABLET (FP) PO SCH (10:16)
[2019-06-16] MEDS: MELATONIN 5 MG TABLETS PO PRN (21:19)
[2019-06-16] MEDS: THIAMINE HCL 100 MG TABLET (FP) PO SCH (21:19)
[2019-06-17] MEDS: IBUPROFEN 400 MG TABLET (FP) PO PRN (06:20)
[2019-06-17] MEDS: METHOCARBAMOL 500 MG TABLET PO SCH ×3 (06:21→21:31)
[2019-06-17] MEDS: NICOTINE 21 MG/24 HOURS TOPICAL PATCH TD SCH (10:13)
[2019-06-17] MEDS: ASPIRIN 81 MG CHEWABLE TABLETS PO SCH (10:13)
[2019-06-17] MEDS: CLINDAMYCIN PHOSPHATE 1% TOPICAL SOLUTION 30 ML BOTTLE TP SCH ×2 (10:14→23:08)
[2019-06-17] MEDS: PRENATAL VITAMINS W/ FOLIC ACID TABLET (FP) PO SCH (10:15)
[2019-06-17] MEDS: amLODIPine BESYLATE 10 MG TABLET (FP) PO SCH (10:15)
--- NOTE | 2019-06-17 10:56 | PN ---
S Progress Note Note: Pt states he has trouble staying asleep. Falls asleep at 11:30, wakes up at 1 AM and then stays awake until 5AM. Would like to try different medications. Plan: increase melatonin to 10mg qhs prn and trazodone 100mg qhs prn Quantiferon test- neg Wants HIV test- ordered
[2019-06-17] MEDS: THIAMINE HCL 100 MG TABLET (FP) PO SCH (21:31)
[2019-06-17] MEDS: MELATONIN 5 MG TABLETS PO PRN (21:32)
[2019-06-18] MEDS: METHOCARBAMOL 500 MG TABLET PO SCH ×3 (06:44→22:23)
[2019-06-18] MEDS: ASPIRIN 81 MG CHEWABLE TABLETS PO SCH (09:56)
[2019-06-18] MEDS: PRENATAL VITAMINS W/ FOLIC ACID TABLET (FP) PO SCH (09:56)
[2019-06-18] MEDS: amLODIPine BESYLATE 10 MG TABLET (FP) PO SCH (09:56)
[2019-06-18] MEDS: CLINDAMYCIN PHOSPHATE 1% TOPICAL SOLUTION 30 ML BOTTLE TP SCH (09:57)
[2019-06-18] MEDS: NICOTINE 21 MG/24 HOURS TOPICAL PATCH TD SCH (09:57)
[2019-06-18] MEDS: MAG HYDROX/AL HYDROX/SIMETH 30 ML UNIT-DOSE CUP PO PRN (19:48)
[2019-06-18] MEDS: MELATONIN 5 MG TABLETS PO PRN (22:23)
[2019-06-18] MEDS: THIAMINE HCL 100 MG TABLET (FP) PO SCH (22:24)
[2019-06-19] MEDS: BENZOCAINE 20 % GEL TUBE MM PRN (03:07)
[2019-06-19] MEDS: ACETAMINOPHEN 325 MG TABLET (FP) PO PRN (03:07)
[2019-06-19] MEDS: METHOCARBAMOL 500 MG TABLET PO SCH ×3 (06:52→21:19)
[2019-06-19] MEDS: ASPIRIN 81 MG CHEWABLE TABLETS PO SCH (09:48)
[2019-06-19] MEDS: PRENATAL VITAMINS W/ FOLIC ACID TABLET (FP) PO SCH (09:48)
[2019-06-19] MEDS: amLODIPine BESYLATE 10 MG TABLET (FP) PO SCH (09:48)
[2019-06-19] MEDS: NICOTINE 21 MG/24 HOURS TOPICAL PATCH TD SCH (09:49)
[2019-06-19] MEDS: THIAMINE HCL 100 MG TABLET (FP) PO SCH (21:19)
[2019-06-19] MEDS: MELATONIN 5 MG TABLETS PO PRN (21:20)
[2019-06-20] MEDS: METHOCARBAMOL 500 MG TABLET PO SCH ×3 (06:29→21:13)
[2019-06-20] MEDS: NICOTINE 21 MG/24 HOURS TOPICAL PATCH TD SCH (09:50)
[2019-06-20] MEDS: amLODIPine BESYLATE 10 MG TABLET (FP) PO SCH (09:50)
[2019-06-20] MEDS: PRENATAL VITAMINS W/ FOLIC ACID TABLET (FP) PO SCH (09:50)
[2019-06-20] MEDS: ASPIRIN 81 MG CHEWABLE TABLETS PO SCH (09:50)
--- NOTE | 2019-06-20 11:32 | PN ---
[facility] Progress Note Note: Patient seen for c/o "bump" to bilateral armpit areas. Patient was diagnosed with folliculitis/abscess. Patient treated with oral antibiotics and Cleocin gel x one week. Patient states symptoms have improved but armpits still have bumps. Patient denies fever, discharge and pain to area. Laboratory Tests 06/17/19 12:00 HIV 1&2 Ag/Ab, 4th Gen Non reactive Vital Signs (72 hours) 06/18/19 06/18/19 06/18/19 00:30 03:30 07:02 Temperature Pulse Rate Respiratory 18 18 18 Rate Blood Pressure 06/18/19 06/19/19 06/19/19 10:37 00:30 07:21 Temperature 98.4 F 97.7 F Pulse Rate 92 H 75 Respiratory 18 18 18 Rate Blood Pressure 120/82 145/77 06/20/19 06/20/19 06/20/19 00:30 03:30 07:09 Temperature 98.6 F Pulse Rate 83 Respiratory 18 18 18 Rate Blood Pressure 126/93 PE: alert and oriented x 3 skin warm and dry bilateral armpits with hair, small pea sized papule palpated, no exudate, mild tenderness, no surrounding redness ext full rom, amb ad isabella A/P: resolving folliculitis /abscess Will extend cleocin topical gel 1% daily to AA x 4 more days Monitor clinically
[2019-06-20] MEDS: CLINDAMYCIN PHOSPHATE 1% TOPICAL GEL 30 GM TUBE TP SCH ×2 (12:54→21:16)
[2019-06-20] MEDS: MELATONIN 5 MG TABLETS PO PRN (21:13)
[2019-06-20] MEDS: THIAMINE HCL 100 MG TABLET (FP) PO SCH (21:13)
[2019-06-21] MEDS: MAG HYDROX/AL HYDROX/SIMETH 30 ML UNIT-DOSE CUP PO PRN ×2 (01:17→22:00)
[2019-06-21] MEDS: METHOCARBAMOL 500 MG TABLET PO SCH ×3 (06:47→21:25)
[2019-06-21] MEDS: IBUPROFEN 400 MG TABLET (FP) PO PRN (06:47)
[2019-06-21] MEDS: amLODIPine BESYLATE 10 MG TABLET (FP) PO SCH (10:04)
[2019-06-21] MEDS: CLINDAMYCIN PHOSPHATE 1% TOPICAL GEL 30 GM TUBE TP SCH ×2 (10:04→21:27)
[2019-06-21] MEDS: PRENATAL VITAMINS W/ FOLIC ACID TABLET (FP) PO SCH (10:04)
[2019-06-21] MEDS: ASPIRIN 81 MG CHEWABLE TABLETS PO SCH (10:04)
[2019-06-21] MEDS: NICOTINE 21 MG/24 HOURS TOPICAL PATCH TD SCH (10:05)
[2019-06-21] MEDS: traZODone HCL 100 MG TABLET (FP) PO PRN (21:25)
[2019-06-21] MEDS: THIAMINE HCL 100 MG TABLET (FP) PO SCH (21:25)
[2019-06-22] MEDS: METHOCARBAMOL 500 MG TABLET PO SCH ×3 (06:13→21:23)
[2019-06-22] MEDS: NICOTINE 21 MG/24 HOURS TOPICAL PATCH TD SCH (09:56)
[2019-06-22] MEDS: amLODIPine BESYLATE 10 MG TABLET (FP) PO SCH (09:56)
[2019-06-22] MEDS: ASPIRIN 81 MG CHEWABLE TABLETS PO SCH (09:56)
[2019-06-22] MEDS: PRENATAL VITAMINS W/ FOLIC ACID TABLET (FP) PO SCH (09:56)
[2019-06-22] MEDS: CLINDAMYCIN PHOSPHATE 1% TOPICAL GEL 30 GM TUBE TP SCH ×2 (09:57→21:25)
--- NOTE | 2019-06-22 10:16 | DS ---
[facility] Rehab Discharge Summary - [facility] Rehab Discharge Summary Admission Date: 06/11/19 Discharge Date: 06/22/19 - History Present History: Alcohol dependence, Cocaine dependence, Opioid dependence Pertinent Past History: 49 y/o male who was admitted to rehab after completing detox on 3 . Pt has a hx of heroin use since 20 y/o, crack/ cocaine since 25 y/o and reports use of alcohol since 15 y/o-recently 1 pt vodka daily. SHx of fx jaw. PMHx of HTN-on amlodipine 10 mg po daily and Aspirin 81 mg po daily. No PPsyHx indicated. Pt is scheduled for discharge tomorrow and has been referred for CD aftercare to [facility]. Pt reports homelessness and scheduled to be picked up by aftercare referral in the morning. - Discharge Physical Exam Vital Signs: Vital Signs Temperature 96.9 F L 06/22/19 06:42 Pulse Rate 84 06/22/19 06:42 Respiratory Rate 18 06/22/19 06:42 Blood Pressure 136/87 06/22/19 06:42 O2 Sat by Pulse Oximetry (%) Pertinent Admission Physical Exam Findings: Laboratory Tests 06/17/19 12:00 HIV 1&2 Ag/Ab, 4th Gen Non reactive General:In no acute distress; Alert o x 3. Denies s/h/i Heent:Normocephalic,Raquel,hearing grossly normal Cardiac:s1 s2, rrr Lungs:cta, krystyna., no sob Abdomen:soft,=bs,nt,nd Extremities/Integumentary:from,dry skin on feet;macular red scaly facial rash around nose, neck/chest/upper back. - Treatment Discharge Condition: Discharge condition good Hospital Course: rehabilitate well, responded to treatment well, CD aftercare referral accepted. - Medication Discharge Medications: Ambulatory Orders Amlodipine Besylate [Norvasc -] 10 mg PO DAILY 30 Days #30 tablet 06/11/19 Aspirin 81 mg PO DAILY 30 Days #30 tab.chew 06/11/19 Bacitracin - [Bacitracin Topical Ointment -] 1 applic TP DAILY #1 tube 06/22/19 Multivitamin [Multiple Vitamins] 1 each PO DAILY #30 tablet 06/22/19 - Medication-Assisted Treatment (MAT) Medication-Assisted Treatment (MAT): No - Discharge Instructions Diet, activity, other medical instructions: Diet:Low salt Activity: As tolerated Other medical instructions:Follow up with primary care at [facility] within 1-2 weeks after discharge. - Diagnosis (1) Dry skin dermatitis Current Visit: Yes Status: Chronic (2) Cocaine use disorder Current Visit: Yes Status: Chronic (3) Hypertension Current Visit: Yes Status: Chronic Qualifiers: Hypertension type: essential hypertension Qualified Code(s): I10 - Essential (primary) hypertension (4) Opioid dependence Current Visit: Yes Status: Chronic Qualifiers: Substance use status: uncomplicated Qualified Code(s): F11.20 - Opioid dependence, uncomplicated - Follow-up Referral Minutes to complete discharge: 30 - AMA Did Patient Leave Against Medical Advice: No
[2019-06-22] MEDS: BACITRACIN 15 GM TUBE TOPICAL OINTMENT TP SCH ×2 (11:10→21:50)
[2019-06-22] MEDS: THIAMINE HCL 100 MG TABLET (FP) PO SCH (21:23)
[2019-06-22] MEDS: traZODone HCL 100 MG TABLET (FP) PO PRN (21:25)
[2019-06-23] MEDS: METHOCARBAMOL 500 MG TABLET PO SCH (06:32)
[2019-06-23] MEDS: BENZOCAINE 20 % GEL TUBE MM PRN (06:33)
[2019-06-23 07:13] VITALS: BP 131/90; PULSE 92; TEMP 98.2
[2019-06-23] MEDS: ACETAMINOPHEN 325 MG TABLET (FP) PO PRN (08:06)
[2019-06-23] MEDS: BACITRACIN 15 GM TUBE TOPICAL OINTMENT TP SCH (09:28)
[2019-06-23] MEDS: PRENATAL VITAMINS W/ FOLIC ACID TABLET (FP) PO SCH (09:28)
[2019-06-23] MEDS: ASPIRIN 81 MG CHEWABLE TABLETS PO SCH (09:28)
[2019-06-23] MEDS: amLODIPine BESYLATE 10 MG TABLET (FP) PO SCH (09:28)
[2019-06-23] MEDS: NICOTINE 21 MG/24 HOURS TOPICAL PATCH TD SCH (09:28)
[2019-06-23] MEDS: CLINDAMYCIN PHOSPHATE 1% TOPICAL GEL 30 GM TUBE TP SCH (09:29)
== END 2019-06-23 10:00 | disposition home or self-care (01) | DRG 772 ==
LOC: YASAS 12:14 → Y5N 12:15
PROVIDERS: ADMIT Neuromusculoskeletal Medicine & OMM; ATTEND Neuromusculoskeletal Medicine & OMM
PROC: HZ42ZZZ Group Counseling for Substance Abuse Treatment, Cognitive-Behavioral (ICD-10-PCS; principal; 2019-06-11)
DX: F11.20 Opioid dependence, uncomplicated (principal); F14.20 Cocaine dependence, uncomplicated; I10 Essential (primary) hypertension; L85.3 Xerosis cutis; L73.9 Follicular disorder, unspecified; L02.411 Cutaneous abscess of right axilla; L02.412 Cutaneous abscess of left axilla; K08.89 Other specified disorders of teeth and supporting structures
CPT/HCPCS: 36415; 87389

== ENCOUNTER 2021-07-23 18:45 | Inpatient (IN) | payer OTHER ==
[2021-07-23] MEDS ORDERED: NALOXONE HCL 0.4 MG/ML VIAL IM PRN (22:08)
[2021-07-23] MEDS ORDERED: MAG HYDROX/AL HYDROX/SIMETH 30 ML UNIT-DOSE CUP PO PRN (22:08)
[2021-07-23] MEDS ORDERED: NALOXONE (NARCAN) HCL 4 MG/0.1 ML SPRAY NS PRN (22:08)
[2021-07-23] MEDS ORDERED: ACETAMINOPHEN 325 MG TABLET (FP) PO PRN (22:08)
[2021-07-23] MEDS ORDERED: ONDANSETRON *ODT* 4 MG TABLET SL PRN (22:08)
[2021-07-23] MEDS ORDERED: IBUPROFEN 400 MG TABLET (FP) PO PRN (22:08)
[2021-07-23] MEDS ORDERED: MAGNESIUM CITRATE 300 ML BOTTLE PO PRN (22:08)
[2021-07-23] MEDS ORDERED: BISMUTH SUBSALICYLATE 524 MG/30 ML PO PRN (22:08)
[2021-07-23] MEDS ORDERED: DICYCLOMINE HCL 10 MG CAPSULE PO PRN (22:08)
[2021-07-23] MEDS ORDERED: MAGNESIUM HYDROX 2400MG/30ML ORAL SUSPENSION 30 ML CUP PO PRN (22:08)
[2021-07-23] MEDS ORDERED: hydrOXYzine PAMOATE 25 MG CAPSULE (FP) PO PRN (22:08)
[2021-07-23] MEDS ORDERED: P-EPHED 60MG/TRIPROLIDI 2.5MG TABLET PO PRN (22:08)
[2021-07-23] MEDS ORDERED: guaiFENesin 200 MG/10 ML 10 ML UNIT-DOSE CUPS PO PRN (22:08)
[2021-07-23] MEDS ORDERED: MENTHOL/PHENOL 1 EACH UD MM PRN (22:08)
[2021-07-24 03:15] VITALS: BMI 33.1
[2021-07-24] MEDS ORDERED: methaDONE HCL 10 MG TABLET (FOR DETOX USE ONLY) PO ONE (04:01)
[2021-07-24] MEDS: METHOCARBAMOL 500 MG TABLET PO PRN ×2 (04:03→22:31)
[2021-07-24] MEDS: ACETAMINOPHEN 325 MG TABLET (FP) PO PRN (04:03)
[2021-07-24] MEDS: cloNIDine HCL 0.1 MG TABLET PO PRN ×3 (04:32→23:03)
[2021-07-24] MEDS: diazePAM 5 MG TABLET PO SCH ×4 (07:40→22:53)
[2021-07-24 10:43] LABS: HEMATOCRIT 41.5 % (35.4-49); HEMOGLOBIN 14.1 GM/dL (11.7-16.9); MCH 31.1 pg (25.7-33.7); MEAN CELL VOLUME 91.6 fl (80-96); MEAN PLT VOLUME 8.5 fl (7.5-11.1); PLATELET COUNT 227 10^3/uL (134-434); RBC 4.53 M/mm3 (4.00-5.60); RDW 14.5 % (11.9-15.9); WHITE BLOOD COUNT 6.2 K/mm3 (4.0-10.0)
[2021-07-24 10:52] LABS: CALCIUM 8.8 mg/dL (8.5-10.1)
[2021-07-24 10:53] LABS: ALBUMIN 3.3 g/dl (3.4-5.0); BLOOD UREA NITROGEN 14.7 mg/dL (7-18)
[2021-07-24 10:56] LABS: CREATININE 0.9 mg/dL (0.55-1.3)
[2021-07-24 10:57] LABS: TOT PROT 6.5 g/dl (6.4-8.2)
[2021-07-24] MEDS: NICOTINE 21 MG/24 HOURS TOPICAL PATCH TD SCH (11:04)
[2021-07-24] MEDS: PRENATAL VITAMINS W/ FOLIC ACID TABLET (FP) PO SCH (11:05)
[2021-07-24 12:34] LABS: HIV INTERPRETATION NEGATIVE (NEGATIVE)
[2021-07-24] MEDS: diazePAM 5 MG TABLET PO PRN (22:30)
[2021-07-24] MEDS: MELATONIN 5 MG TABLETS PO SCH (22:31)
[2021-07-24] MEDS: THIAMINE HCL 100 MG TABLET (FP) PO SCH (22:31)
[2021-07-25] MEDS: diazePAM 5 MG TABLET PO SCH ×3 (06:43→22:16)
[2021-07-25] MEDS: METHOCARBAMOL 500 MG TABLET PO PRN ×2 (06:44→22:16)
[2021-07-25] MEDS: ACETAMINOPHEN 325 MG TABLET (FP) PO PRN (06:44)
[2021-07-25] MEDS: cloNIDine HCL 0.1 MG TABLET PO PRN ×3 (06:44→22:16)
[2021-07-25] MEDS ORDERED: methaDONE HCL 10 MG TABLET (FOR DETOX USE ONLY) ONE (09:14)
[2021-07-25] MEDS: amLODIPine BESYLATE 10 MG TABLET (FP) PO SCH (09:47)
[2021-07-25] MEDS: NICOTINE 21 MG/24 HOURS TOPICAL PATCH TD SCH (09:47)
[2021-07-25] MEDS: PRENATAL VITAMINS W/ FOLIC ACID TABLET (FP) PO SCH (09:47)
[2021-07-25] MEDS: LIDOCAINE 5% TOPICAL PATCH TP SCH (14:15)
[2021-07-25] MEDS ORDERED: LIDOCAINE PATCH REMOVAL MC SCH (22:00)
[2021-07-25] MEDS: THIAMINE HCL 100 MG TABLET (FP) PO SCH (22:16)
[2021-07-25] MEDS: MELATONIN 5 MG TABLETS PO SCH (22:16)
[2021-07-26] MEDS: diazePAM 5 MG TABLET PO SCH ×2 (06:24→17:54)
[2021-07-26] MEDS: cloNIDine HCL 0.1 MG TABLET PO PRN ×2 (06:25→23:00)
[2021-07-26] MEDS ORDERED: methaDONE HCL 10 MG TABLET (FOR DETOX USE ONLY) PO ONE (10:00)
[2021-07-26] MEDS: amLODIPine BESYLATE 10 MG TABLET (FP) PO SCH (10:14)
[2021-07-26] MEDS: PRENATAL VITAMINS W/ FOLIC ACID TABLET (FP) PO SCH (10:14)
[2021-07-26] MEDS: NICOTINE 21 MG/24 HOURS TOPICAL PATCH TD SCH (10:14)
[2021-07-26] MEDS: LIDOCAINE 5% TOPICAL PATCH TP SCH ×2 (12:24→12:35)
[2021-07-26] MEDS: NICOTINE 10 MG CARTRIDGE (INHALER) IH PRN (16:25)
[2021-07-26] MEDS: THIAMINE HCL 100 MG TABLET (FP) PO SCH (22:55)
[2021-07-26] MEDS: MELATONIN 5 MG TABLETS PO SCH (22:56)
[2021-07-26] MEDS: METHOCARBAMOL 500 MG TABLET PO PRN (22:59)
[2021-07-26] MEDS: diazePAM 5 MG TABLET PO PRN (23:00)
[2021-07-27] MEDS: METHYL SALICYLATE/MENTHOL OINT 30 GM TUBE TP SCH ×3 (00:07→22:20)
[2021-07-27] MEDS: LIDOCAINE PATCH REMOVAL MC SCH ×2 (00:08→22:20)
[2021-07-27] MEDS: METHOCARBAMOL 500 MG TABLET PO PRN ×2 (05:44→17:39)
[2021-07-27] MEDS ORDERED: diazePAM 5 MG TABLET PO ONE (06:00)
[2021-07-27] MEDS ORDERED: methaDONE HCL 10 MG TABLET (FOR DETOX USE ONLY) ONE (09:24)
[2021-07-27] MEDS: amLODIPine BESYLATE 10 MG TABLET (FP) PO SCH (10:27)
[2021-07-27] MEDS: NICOTINE 21 MG/24 HOURS TOPICAL PATCH TD SCH (10:28)
[2021-07-27] MEDS: PRENATAL VITAMINS W/ FOLIC ACID TABLET (FP) PO SCH (10:28)
[2021-07-27] MEDS: LIDOCAINE 5% TOPICAL PATCH TP SCH (13:43)
[2021-07-27] MEDS: THIAMINE HCL 100 MG TABLET (FP) PO SCH (22:20)
[2021-07-27] MEDS: MELATONIN 5 MG TABLETS PO SCH (22:20)
[2021-07-28] MEDS ORDERED: methaDONE HCL 10 MG TABLET (FOR DETOX USE ONLY) PO ONE (10:00)
[2021-07-28] MEDS: LIDOCAINE 5% TOPICAL PATCH TP SCH (10:27)
[2021-07-28] MEDS: amLODIPine BESYLATE 10 MG TABLET (FP) PO SCH (10:27)
[2021-07-28] MEDS: METHYL SALICYLATE/MENTHOL OINT 30 GM TUBE TP SCH ×2 (10:27→22:13)
[2021-07-28] MEDS: NICOTINE 21 MG/24 HOURS TOPICAL PATCH TD SCH (10:28)
[2021-07-28] MEDS: PRENATAL VITAMINS W/ FOLIC ACID TABLET (FP) PO SCH (10:28)
[2021-07-28] MEDS: NICOTINE 10 MG CARTRIDGE (INHALER) IH PRN (10:29)
[2021-07-28] MEDS: METHOCARBAMOL 500 MG TABLET PO PRN (11:05)
[2021-07-28] MEDS: ACETAMINOPHEN 325 MG TABLET (FP) PO PRN (11:05)
[2021-07-28] MEDS: THIAMINE HCL 100 MG TABLET (FP) PO SCH (22:12)
[2021-07-28] MEDS: MELATONIN 5 MG TABLETS PO SCH (22:12)
[2021-07-28] MEDS: LIDOCAINE PATCH REMOVAL MC SCH (22:13)
[2021-07-29] MEDS: amLODIPine BESYLATE 10 MG TABLET (FP) PO SCH (09:14)
[2021-07-29] MEDS: PRENATAL VITAMINS W/ FOLIC ACID TABLET (FP) PO SCH (09:15)
[2021-07-29] MEDS: METHYL SALICYLATE/MENTHOL OINT 30 GM TUBE TP SCH (09:15)
[2021-07-29] MEDS: LIDOCAINE 5% TOPICAL PATCH TP SCH (09:15)
[2021-07-29] MEDS: NICOTINE 21 MG/24 HOURS TOPICAL PATCH TD SCH (09:15)
[2021-07-29 09:32] VITALS: BP 145/87; PULSE 87; TEMP 97.1
== END 2021-07-29 09:34 | disposition home or self-care (01) | DRG 773 ==
LOC: YASAS 18:45 → Y3N 23:30 → UNDOADMIN 23:30
PROVIDERS: ADMIT Allergy & Immunology; ATTEND Allergy & Immunology
PROC: HZ2ZZZZ Detoxification Services for Substance Abuse Treatment (ICD-10-PCS; principal; 2021-07-23)
DX: F11.23 Opioid dependence with withdrawal (principal); F10.230 Alcohol dependence with withdrawal, uncomplicated; F14.20 Cocaine dependence, uncomplicated; F17.210 Nicotine dependence, cigarettes, uncomplicated; G47.30 Sleep apnea, unspecified; I10 Essential (primary) hypertension; L85.3 Xerosis cutis; M17.0 Bilateral primary osteoarthritis of knee; M54.50 Low back pain, unspecified; G89.29 Other chronic pain; E66.9 Obesity, unspecified; Z68.33 Body mass index [BMI] 33.0-33.9, adult
CPT/HCPCS: 36415; 71046-TC-FY; 80053; 85027; 86780; 87389; C9803; J0735; U0003; U0005